=== PATIENT | male | born 1955 | race Caucasian/White ===

== ENCOUNTER 2023-04-07 09:55 | Emergency (ER) | payer MEDICARE, SELFPAY ==
[2023-04-07 09:57] VITALS: BP 184/115; PULSE 76; RESP 14; TEMP 36.2; O2SAT 99; BMI 27.6
[2023-04-07 10:12] VITALS: BP 180/103
--- NOTE | 2023-04-07 10:17 | RAD_ITS ---
STUDY: X-RAY CHEST REASON FOR EXAM: Male, 68 years old. Atypical chest pain TECHNIQUE: PA and lateral views of the chest. COMPARISON: None. FINDINGS: The lungs are clear and expanded. There is no demonstrated pleural abnormality. Normal size heart. Normal mediastinum and loco. Normal visualized pulmonary arteries. Normal visualized aortic arch and descending thoracic aorta. Normal visualized thoracic spine. Normal visualized ribs, clavicles, and shoulders. There is no demonstrated abnormality of the visualized soft tissue structures of the upper abdomen. RAD/Chest PA and Lateral IMPRESSION: No acute pulmonary process Electronically Signed: Nhan Dixon MD at 11:37 EST ,
--- NOTE | 2023-04-07 10:18 | EX.ED.DYSGE1 ---
HPI History of Present Illness Chief Complaint: Hypertension Detail of Chief Complaint: Hypertension and not feeling well Informant: patient Narrative Narrative: Patient presents to the emergency department with complaint of elevated blood pressures since they started checking them yesterday. Patient states that he and his marc went to a concert and he had to leave early because he was not feeling well. He just had no energy and felt somewhat lightheaded. Patient also states that he has been having some pain over his right clavicle for several months. There is been no injury. Patient states he had RSV about 60 days ago and thought the pain was due to all the cough and. Patient quit smoking 90 days ago but had smoked half a pack a day for about 6 or 7 years before that. In his younger years he was smoking a pack a day. Patient tells me that he is from [place] and currently establishing with primary care physician here locally. He had been treated for elevated blood pressures but then made some lifestyle modifications and diet modifications and was taken off his blood pressure medication as he had been on lisinopril. Patient tells me he had a heart cath about 5 years ago that was essentially clean. He has not had chest pain or shortness of breath. PFSH PFSH Medical History no medical history Home Medications hydrocodone-acetaminophen 5-325mg 5mg-325mg 1 tab PO Q4H PRN PRN Pain 2 days #10 TABLETS 04/07/23 [Rx Last Taken Unknown] lisinopril 10 mg tablet 10 mg PO DAILY #30 tabs 04/07/23 [Rx Last Taken Unknown] Allergy/AdvReac Type Severity Reaction Status Date / Time No Known Allergies Allergy Verified 04/07/23 09:58 Family History no significant family his Surgical History no surgical history Social History Smoking Status: Former smoker ROS ROS ED ROS Narrative Hypertension Review of Systems ROS Unobtainable: other Constitutional Constitutional ED: Reports lethargy; Denies chills, fever(s), sweats or weight loss Eyes Eyes: Denies blurry vision, change in vision or diplopia ENT ENT ED: Denies rhinorrhea or sore throat Cardiovascular Cardiovascular: Denies chest pain, orthopnea or racing heartbeat Respiratory/Chest Respiratory/Chest: Denies cough, dyspnea, dyspnea on exertion, orthopnea or sputum Gastrointestinal Gastrointestinal: Denies abdominal pain, diarrhea, nausea or vomiting Genitourinary Genitourinary ED: Denies dysuria, hematuria or urinary frequency Musculoskeletal Musculoskeletal: Reports other Details: Pain to the right clavicle ; Denies arthralgias, back pain, myalgias or neck pain Integumentary Denies abscess, Abrasions or rash Neurologic Neurologic: Reports weakness; Denies headache(s) Psychiatric Psychiatric: Denies anxiety, depression or suicidal thoughts Endocrine Endocrinology: Denies polydipsia, polyphagia or polyuria Hematologic/Lymphatic Hematologic/Lymphatic: Denies easy bleeding, easy bruising or lymphadenopathy Allergic/Immunologic Allergic/Immunologic ED: Denies mouth swelling, tongue swelling or urticaria EXAM Physical Exam Const Vital Signs: 04/07/23 09:57 04/07/23 10:12 04/07/23 10:12 Temperature 97.1 F L Temperature Source Temporal Pulse Rate 76 Respiratory Rate 14 Respiratory Effort Normal Respiratory Pattern Normal Blood Pressure 184/115 H 180/103 H Blood Pressure Mean 138 128 Pulse Ox 99 Oxygen Delivery Method Room Air 04/07/23 11:41 Temperature Temperature Source Pulse Rate Respiratory Rate Respiratory Effort Respiratory Pattern Blood Pressure 192/99 H Blood Pressure Mean 130 Pulse Ox Oxygen Delivery Method Positive well nourished and well developed General Appearance ED: well developed and NAD HEENT Reports TM's clear and moist mucous membranes normocephalic and atraumatic; Negative for trauma or tenderness Tympanic Membrane ED: Yes TM's clear Eyes PERRL and EOMs intact bilaterally General Eye ED: Negative for pale conjunctiva or scleral icterus Neck no lymphadenopathy, supple and no JVD General: Negative for tenderness Chest Wall inspection of chest normal and palpation of chest normal Chest: Negative for tenderness Resp normal respiratory effort and clear to auscultation bilaterally Effort and Inspection: Negative for respiratory distress or pain with movement Auscultation: Negative for rhonchi, wheezes or diminished lung sounds Cardio regular rate, regular rhythm, S1 normal heart sound, S2 normal heart sound and no murmurs Peripheral Pulses: pulses 2+ throughout GI normal to inspection, nondistended, normoactive bowel sounds, soft to palpation, non-tender, non-distended and no masses Back/Spine no CVA tenderness and no thoracic nor lumbar tenderness Extremity Extremity Narrative: Evaluation of the right clavicle does reveal some tenderness to palpation over the sternum no clavicular joint that seems hypertrophied on the right compared to the left. There is no erythema or cellulitic changes noted. General Extremety ED: Negative for edema General Extremity: Negative for edema Neuro oriented x3, CN's II-XII intact bilaterally, no sensory deficits noted and gait normal Sensorium / Orientation: awake, alert, oriented to person, oriented to place and oriented to time Motor Exam: strength 5/5 throughout and strength abnormal Psych mental status grossly normal Skin no rashes or lesions noted and no wounds MDM MDM MDM Narrative Medical decision making narrative: Patient presents with elevated blood pressure. States that he was taken off his blood pressure medication because of some lifestyle changes and diet changes and really has not been checking his blood pressure until recently. He also be complaining of right clavicle pain for couple of months. Without evidence of trauma. He did have RSV 60 days ago. EKG obtained arrival shows sinus rhythm with rate of 65 bpm with incomplete right bundle branch block. CBC with differential count of 9.1 with hemoglobin 14.9 and platelet count of 250. Chemistries unremarkable. Troponin normal at 7. Chest x-ray showed no acute abnormalities of the sternal clavicular joint. Patient's blood pressure steady in the 180s to 190s systolic over 90s diastolic. I did give him lisinopril 10 mg p.o. Will restart patient on his lisinopril that he used to take. He is got an appointment April 19 with primary care physician to establish. He is to keep a journal of his blood pressures. I will give him a prescription for a few Letha for the pain over his sternal clavicular joint and referral to orthopedics for follow-up as he may benefit from possible injection of this area with steroids. Lab Data Attestation: I reviewed the patient's lab results. Labs: Laboratory Results - last 24 hr 04/07/23 10:32 WBC 9.1 RBC 4.68 Hgb 14.9 Hct 42.7 MCV 91.2 MCH 31.8 MCHC 34.9 RDW Std Deviation 42.2 RDW Coeff of Christie 12.7 Plt Count 250 MPV 8.6 Immature Gran % (Auto) 0.400 Neut % (Auto) 61.7 Lymph % (Auto) 27.1 [place]os % (Auto) 7.7 Eos % (Auto) 2.4 Baso % (Auto) 0.7 Absolute Neuts (auto) 5.6 Absolute Lymphs (auto) 2.46 Nucleated RBC % 0 Sodium 139 Potassium 4.0 Chloride 106 Carbon Dioxide 25.0 Anion Gap 8 BUN 18 Creatinine 0.92 Estim Creat Clear Calc 84.12 Est GFR (MDRD) Af Amer 106 Est GFR (MDRD) Non-Af 88 BUN/Creatinine Ratio 19.6 Glucose 102 Calcium 9.1 Troponin I High Sens 7 Radiography Diagnostic Testing: Clinical Impression(s) from Imaging Studies Chest X-Ray 04/07/23 10:17 IMPRESSION: No acute pulmonary process Electronically Signed: Nhan Dixon MD at 11:37 EST , 1 view chest x-ray obtained interpreted by myself as no evidence of infiltrate or pneumothorax or acute disease process. Radiology in agreement. EKG Initial EKG: Attestation: I personally reviewed and interpreted this EKG as follows: Comments: Sinus rhythm with ventricular rate of 65 bpm with incomplete right bundle branch block Discharge Plan Triage Chief Complaint: Hypertension ED Provider: Lamont Thompson Dx/Rx/DC Orders Clinical Impression: Pain of right sternoclavicular joint, Hypertension Instructions: ED Hypertension, Established, ED Pain, Acute, Uncertain Cause Prescriptions: New lisinopril 10 mg tablet 10 mg PO DAILY Qty: 30 0RF hydrocodone-acetaminophen [hydrocodone-acetaminophen] 5-325 mg tablet 1 tab PO Q4H PRN PRN (Reason: Pain) 2 Days Qty: 10 0RF Primary Care Provider: Care Physician,No Primary Referrals: Abram Delgadillo DO [Med Staff - Active Staff] - 3-5 Days Care Physician,No Primary [Primary Care Provider] - Activity Restrictions/Additional Instructions: Keep your appointment with primary care physician. Disposition Disposition: Home, Self Care Discharge Date/Time: 04/07/23 12:09
--- OUTSIDE RECORDS SUMMARY | 2023-04-07 10:37 | XMS RPT_ITS | CCD ---
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 01/24/2015 05/31/2022 completed Problems Problem Classification Problem Date Documented Date Episodic/Chronic Abdominal pain (1 source) Flank pain Onset: 03-10-2018 Episodic Anxiety disorders (2 sources) Generalized anxiety disorder; Translations: [Generalized anxiety disorder] Onset: 05-31-2022 Resolved: 05-31-2022 Chronic Cardiac dysrhythmias (1 source) Tachycardia Episodic Esophageal disorders (2 sources) Gastroesophageal reflux disease; Translations: [Gastro-esophageal reflux disease without esophagitis] Onset: 05-31-2022 Resolved: 05-31-2022 Chronic Essential hypertension (2 sources) Benign hypertension; Translations: [Essential (primary) hypertension] Onset: 05-31-2022 Resolved: 05-31-2022 Chronic Other infections; including parasitic (1 source) History of hepatitis C Onset: 05-31-2022 Episodic Other screening for suspected conditions (not mental disorders or infectious disease) (2 sources) Raised prostate specific antigen; Translations: [Elevated prostate specific antigen [PSA]] Onset: 05-31-2022 Resolved: 05-31-2022 Episodic Substance-related disorders (1 source) History of substance abuse Onset: 05-31-2022 Chronic Unclassified (1 source) Unknown / UNK(Unknown) Onset: 03-10-2018 Results Test Name Value Interpretation Reference Range Facil ity Vital Signs Date Time Vital Sign Value Performing Clinician Facility 05-31-2022 01:00-0400 Body height 177.8 cm Dina Abre[facility] 05-31-2022 01:00-0400 Body mass index (BMI) [Ratio] 21.6 kg/m2 [facility] 05-31-2022 01:00-0400 Body temperature 96.8 [degF] [facility] 05-31-2022 01:00-0400 Body weight 68.13 kg D[facility] 05-31-2022 01:00-0400 Diastolic blood pressure 88 mm[Hg] [facility] 05-31-2022 01:00-0400 Heart rate 116 /min D[facility] 05-31-2022 01:00-0400 SaO2% (BldA) [Mass fraction] 98 % D[facility] 05-31-2022 01:00-0400 Systolic blood pressure 140 mm[Hg] [facility] Encounters Encounter Date Encounter Type Care Provider Facility Start: 08-27-2022 End: 08-27-2022 Emergency department patient visit DINA ABREU CNP Facility:[facility] Start: 05-31-2022 Dina [facility] - [facility] Start: 03-10-2018 End: 03-10-2018 Emergency department patient visit MEGHAN MARINELLI Facility:[facility] Procedures Date Procedure Procedure Detail Performing Clinician Start: 05-31-2022 End: 05-31-2022 Depression screening Dina Abreu Start: 05-31-2022 End: 05-31-2022 Endocrine/metabolic screening Dina hopkins Start: 05-19-2018 Colonoscopy Dina Abreu Start: 03-18-2009 Dina Abreu Start: 05-16-2008 Dina Abreu Start: 03-18-2008 Dina Abreu Start: 03-18-2006 Colonoscopy Dina Abreu Start: 03-18-2006 Esophagogastroduodenoscopy Dina Abreu Start: 04-18-2005 Vasectomy Dina Abreu Plan of Treatment Date Care Activity Detail Author Start: 07-24-2022 PHYSICAL/PREVENTATIVE PHYSICAL/PREVENTATIVE [employer] Start: 05-31-2022 CBC W Auto Differential panel - Blood [facility] Start: 05-31-2022 Comprehensive metabolic 2000 panel - Serum or Plasma [facility] Start: 05-31-2022 Hemoglobin A1c/Hemoglobin.total in Blood [facility] Start: 05-31-2022 Lipid 1996 panel - Serum or Plasma [place] [employer] Start: 05-31-2022 lisinopril 10 mg tablet [facility] Start: 05-31-2022 FQ visit new patient [place] [employer] [facility] [employer] Orthopaedic [place] [facility] [employer] Immunizations Immunization Date Immunization Notes Care Provider Fa cility 05-16-2021 pneumococcal polysaccharide vaccine, 23 valent Dina Abreu [facility] 06-16-2020 SARS-COV-2 (COVID-19 ) vaccine, mRNA, spike protein, LNP, preservative free, 100 mcg/0.5mL dose Dina Abreu [facility] 05-19-2020 SARS-COV-2 (COVID-19 ) vaccine, mRNA, spike protein, LNP, preservative free, 100 mcg/0.5mL dose Dina Abreu [facility] 01-07-2020 influenza, injectabl e, quadrivalent, preservative free Dina A[facility] 03-18-2014 influenza, seasonal, injectable Dina A[facility] 03-26-2012 influenza, seasonal, injectable Dina A[facility] 03-18-2012 tetanus toxoid, adsorbed Mat juancarlos Abre[facility] Payers Date Payer Category Payer Private Health Insurance [id number] 1955 Unknown [id number] Unknown [id number] Unknown [id number] Social History Date Type Detail Facility Tobacco Smoking Status NYIS Current Every Day Smoker [facility] Sex Assigned At Unknown [place] [employer] Medical Equipment Procedure Code Equipment Code Equipment Original Text Equi pment Identifier Dates Procedure Implant ([id number]) Evaluation note Note Date & Type Note Facility [facility] History general Narrative - Reported Note Date & Type Note Facility [facility] Summary Purpose Family History No Family History Records Found Relationship Description Onset Age of this Age Resolved Age Notes Mother Hypertensive disorder Mother Coronary arteriosclerosis Mother Malignant tumor of lung 84 Father Ulcer Father Well male adult Brother Well adult Sister Well adult x 3 siste rs Advance Directives No Advanced Directives Records FoundNo Advanced Directives Records FoundNo Advanced Directives Records Found Additional Source Comments (unrecognized sect ion and content) No Status Records FoundNo Status Records FoundNo Status Records Found INFORMATION SOURCE (unrecogn ized section and content) DATE CREATED AUTHOR AUTHOR'S ORGANIZ ATION 03/20/2018 [facility] DATE CREATED AUTHOR AUTHOR'S ORGANIZ ATION 09/07/[address] [facility] ([place]) FOR RECORDS PERTAINING TO PATIENTS WHO ARE OR HAVE BEEN ENROLLED IN A CHEMICAL DEPENDENCY/SUBSTANCEABUSE PROGRAM, SOME INFORMATION MAY BE OMITTED. This clinical summary was aggregated from multiple sources. Caution should be exercised in using it in the provision of clinical care. This summary normalizes information from multiple sources, and as a consequence, information in this document may materially change the coding, format and clinical context of patient data. In addition, data may be omitted in some cases. CLINICAL DECISIONS SHOULD BE BASED ON THE PRIMARY CLINICAL RECORDS. [facility] [employer] [facility]. provides no warranty or guarantee of the accuracy or completeness of information in this document.
[2023-04-07 10:49] LABS: Absolute Lymphocyte Count 2.46 X10^3/uL (0.83-4.51); Absolute Neutrophil Count 5.6 X10^3/uL (2.0-7.7); Basophil# 0.06 X10^3/uL; Basophil% 0.7 % (0-1); Eosinophil# 0.22 X10^3/uL; Eosinophils% 2.4 % (0-5); Hematocrit 42.7 % (40-54); Hemoglobin 14.9 g/dL (13.0-16.5); Lymphocyte # 2.46 X10^3/ul (0.83-4.51); Lymphocyte % 27.1 % (19-41); Mean Corp Hgb Conc 34.9 g/dL (32-36); Mean Corpuscular Hgb 31.8 pg (27.0-32.0); Mean Corpuscular Volume 91.2 fL (80-94); Mean Platelet Vol. 8.6 fl (6.2-12.0); Monocyte% 7.7 % (0-10); NRBC Flagged by Analyzer 0 % (0-5); Neutrophil % 61.7 % (47-70); Platelet Count 250 K/mm3 (150-450); RBC Distribution Width CV 12.7 % (11.6-14.6); RBC Distribution Width SD 42.2 fl (35.1-43.9); Red Blood Count 4.68 M/mm3 (4.6-6.2); White Blood Count 9.1 K/mm3 (4.4-11.0)
[2023-04-07 10:56] LABS: Anion Gap 8 (5-15); BUN 18 mg/dL (7-18); BUN/Creat Ratio 19.6 RATIO (10-20); Calcium,Total 9.1 mg/dL (8.5-10.1); Chloride 106 mmol/L (98-107); Creatinine, Serum 0.92 mg/dL (0.70-1.30); EST Glomerular Filtration Rate 88 mL/min (>60); Est Glom Filt Rate - Afr Amer 106 mL/min (>60); Estimated Creatinine Clearance 84.12 ml/min; Glucose 102 mg/dL (74-106); Sodium Level 139 mmol/L (136-145); Troponin-I HS 7 pg/mL (3.0-78.0)
[2023-04-07] MEDS: 0.9% Normal Saline (1000mL) 1,000 ML 150 ML IV (11:11)
[2023-04-07 11:41] VITALS: BP 192/99
== END 2023-04-07 12:09 | disposition home or self-care (01) ==
PROVIDERS: Emergency Provider Emergency Medicine; Visit Provider Emergency Medicine
DX: M25.511 Pain in right shoulder (principal); I10 Essential (primary) hypertension; Z79.899 Other long term (current) drug therapy; Z87.891 Personal history of nicotine dependence
CPT/HCPCS: 71046; 80048; 84484; 85025; 87631; 93005; 96360; 99284; J7030; A4216